=== PATIENT | male | born 1975 | race Caucasian/White ===

== ENCOUNTER 2019-02-07 00:19 | Emergency (ER) | payer OTHER ==
[2019-02-07] MEDS ORDERED: ASPIRIN 81 MG TABLET, CHEWABLE PO ONE (01:01)
--- NOTE | 2019-02-07 01:10 | ER Document Report ---
ED Cardiac - General Chief Complaint: Chest Pain Stated Complaint: CHEST PAIN/HEADACHE/LEFT ARM TINGLING Time Seen by Provider: 02/07/19 00:52 Notes: Patient is a 43-year-old male that comes emergency department for chief complaint of chest pain. He states it feels like a sharp pinching sensation, however tonight he felt it radiating to his left arm and shoulder and it did not go away like previously so he became concerned. He points to his mid to lower chest and the mid to upper chest as the area of the pain earlier. He has been feeling this intermittently for the past week or so. He states that it happened at work earlier, he drank a lot of water and walked around and it resolved. He states it also happens a lot at night. He denies nausea vomiting, fever/chills, difficulty breathing, or injury. He denies smoking, frequent alcohol, recent alcohol, or recreational drugs. His only daily medication is Nexium., Only past medical history is GERD, hernia repair, and orthopedic surgery - Related Data Allergies/Adverse Reactions: No Known Allergies Allergy (Unverified 02/07/19 01:07) Past Medical History - General Information source: Patient - Social History Smoking Status: Never Smoker Chew tobacco use (# tins/day): No Frequency of alcohol use: Occasional Drug Abuse: None Lives with: Family Family History: CAD Patient has suicidal ideation: No Patient has homicidal ideation: No GI Medical History: Reports: Hx Gastroesophageal Reflux Disease Surgical Hx: Negative - Immunizations Immunizations up to date: Yes Hx Diphtheria, Pertussis, Tetanus Vaccination: Yes Review of Systems - Review of Systems Constitutional: No symptoms reported EENT: No symptoms reported Cardiovascular: See HPI Respiratory: No symptoms reported Gastrointestinal: See HPI Genitourinary: No symptoms reported Male Genitourinary: No symptoms reported Musculoskeletal: No symptoms reported Skin: No symptoms reported Hematologic/Lymphatic: No symptoms reported Neurological/Psychological: No symptoms reported Physical Exam - Vital signs Vitals: Resp 12 02/07/19 00:39 - Notes Notes: GENERAL: Alert, interacts well. No acute distress. HEAD: Normocephalic, atraumatic. EYES: Pupils equal, round, and reactive to light. Extraocular movements intact. ENT: Oral mucosa moist, tongue midline. Oropharynx unremarkable. Airway patent. NECK: Full range of motion. Supple. Trachea midline. LUNGS: Clear to auscultation bilaterally, no wheezes, rales, or rhonchi. No respiratory distress. HEART: Regular rate and rhythm. No murmur ABDOMEN: Soft, non-tender. Non-distended. EXTREMITIES: Moves all 4 extremities spontaneously. No edema, normal radial and dorsalis pedis pulses bilaterally. No cyanosis. BACK: no cervical, thoracic, lumbar midline tenderness. No saddle anesthesia, normal distal neurovascular exam. Moves all extremities in full range of motion. NEUROLOGICAL: Alert and oriented x3. Normal speech. Cranial nerves II through XII grossly intact. PSYCH: Normal affect, normal mood. SKIN: Warm, dry, normal turgor. No rashes or lesions noted. Course - Re-evaluation Re-evalutation: Patient well-appearing. Symptoms have been coming and going for over a week. Symptoms are very atypical and are specifically worse when he is lying down, he only had this once when walking around. He does have a reflux history on Nexium. His abdomen is soft and benign, chest nontender, lungs clear, no current complaints. Very atypical symptoms. CBC unremarkable, chemistry unremarkable except for borderline hyperglycemia and borderline elevation of CK. Troponin negative. EKG nonischemic. I discussed with patient. Because he is over the age of 40, has family history of cardiac disease, we will cycle troponin, if this is negative he will follow closely with his provider and we will place him on Carafate for suspected GI source based on his reported symptoms. He states he will also follow-up with him closely and be referred to cardiology for symptoms continue. Troponin negative, heart score is less than 3, patient will be discharged with return precautions which we discussed at length. Patient states appreciation and agreement. Stable at time of discharge. - Vital Signs Vital signs: Temp Pulse Resp BP Pulse Ox 97.9 F 67 12 156/99 H 98 02/07/19 00:49 02/07/19 00:49 02/07/19 06:00 02/07/19 01:00 02/07/19 06:00 - Laboratory Result Diagrams: 02/07/19 00:54 02/07/19 00:54 Laboratory results interpreted by me: 02/07/19 00:54 Glucose 117 H Creatine Kinase 177 H - EKG Interpretation by Me Additional EKG results interpreted by me: EKG sinus rhythm with no T wave inversions or ST segment changes in consecutive leads. Normal axis. There is a single borderline Q wave in lead III but no consecutive leads with this. QTC unremarkable. Discharge - Discharge Clinical Impression: Chest pain of unknown etiology Condition: Stable Disposition: HOME, SELF-CARE Additional Instructions: Your work-up is reassuring at this time, the exact cause of your pain is not certain. Based on your history and symptoms I recommend that you take the Carafate for possible gastrointestinal source such as esophageal spasms, continue current medication, follow-up with primary care for additional management. Please discuss with your primary care potential cardiac referral for stress testing. Return if you worsen in any way including difficulty breathing, severe pain, vomiting, fever, or any other concerning symptoms. Prescriptions: Sucralfate [Carafate 1 gm Tablet] 1 gm PO QID #20 tablet
[2019-02-07 01:17] LABS: ABSOLUTE BASOPHILS # (AUTO) 0.1 10^3/uL (0.0-0.2); ABSOLUTE EOSINOPHILS # (AUTO) 0.3 10^3/uL (0.0-0.6); ABSOLUTE LYMPHOCYTES (AUTO) 2.5 10^3/uL (0.5-4.7); ABSOLUTE MONOCYTES (AUTO) 0.8 10^3/uL (0.1-1.4); ABSOLUTE NEUT (AUTO) 3.7 10^3/uL (1.7-8.2); BASOPHILS % (AUTO) 1.1 % (0-2); EOSINOPHILS % (AUTO) 3.5 % (0-6); HEMATOCRIT 42.1 % (37.9-51.0); HEMOGLOBIN 14.6 g/dL (13.5-17.0); LYMPHOCYTES % (AUTO) 33.8 % (13-45); MEAN CORPUSCULAR HEMOGLOBIN 32.6 pg (27.0-33.4); MEAN CORPUSCULAR HGB CONC 34.7 g/dL (32.0-36.0); MEAN CORPUSCULAR VOLUME 94 fl (80-97); MONOCYTES % (AUTO) 11.5 % (3-13); PLATELET COUNT 243 10^3/uL (150-450); RED BLOOD COUNT 4.48 10^6/uL (4.35-5.55); RED CELL DISTRIBUTION WIDTH 12.6 % (11.5-14.0); SEGMENTED NEUTROPHILS % (AUTO) 50.1 % (42-78); TOTAL CELLS COUNTED % (AUTO) 100 %; WHITE BLOOD COUNT 7.4 10^3/uL (4.0-10.5)
[2019-02-07 01:33] VITALS: BP 156/99
[2019-02-07 01:40] LABS: ALBUMIN 4.4 g/dL (3.5-5.0); ALKALINE PHOSPHATASE 93 U/L (38-126); ANION GAP 10 (5-19); ASPARTATE AMINO TRANSFERASE 38 U/L (17-59); BILIRUBIN,DIRECT 0.1 mg/dL (0.0-0.4); BILIRUBIN,TOTAL 0.6 mg/dL (0.2-1.3); BLOOD UREA NITROGEN 12 mg/dL (7-20); CALCIUM 9.1 mg/dL (8.4-10.2); CARBON DIOXIDE 25 mmol/L (22-30); CHLORIDE 106 mmol/L (98-107); CREATINE KINASE 177 U/L (55-170); GLUCOSE 117 mg/dL (75-110); POTASSIUM 4.2 mmol/L (3.6-5.0); TOTAL PROTEIN 7.4 g/dL (6.3-8.2)
--- NOTE | 2019-02-07 01:57 | RADIOLOGY REPORT (SQ) ---
EXAM DESCRIPTION: [facility]: XR CHEST 1 VIEW CLINICAL HISTORY: 43 years Male, chest pain COMPARISON: None. FINDINGS: Lungs are clear, with no focal infiltrate, pneumothorax, or pleural effusion. Mediastinum is within normal limits for this positioning. Bony structures are unremarkable. IMPRESSION: 1. No acute pulmonary findings.
[2019-02-07 02:27] LABS: APPEARANCE,URINE CLEAR; BILIRUBIN,URINE NEGATIVE (NEGATIVE); COLOR,URINE STRAW; GLUCOSE, URINE NEGATIVE (NEGATIVE); KETONES,URINE NEGATIVE (NEGATIVE); LEUKOCYTE ESTERASE,URINE NEGATIVE (NEGATIVE); NITRITE,URINE NEGATIVE (NEGATIVE); PROTEIN,URINE NEGATIVE (NEGATIVE); URINE SPECIFIC GRAVITY 1.008; UROBILINOGEN,URINE NEGATIVE mg/dL (<2.0)
[2019-02-07] MEDS ORDERED: NORMAL SALINE 500 ML IV ONE (03:45)
--- NOTE | 2019-02-07 14:43 | EKG REPORT ---
SEVERITY:- NORMAL ECG - SINUS RHYTHM : Confirmed by: Mera Ozuna MD 07-Feb-2019 14:43:09
== END 2019-02-07 06:53 | disposition home or self-care (01) ==
LOC: ER 00:19
DX: R07.9 Chest pain, unspecified (principal); R51 Headache; R20.2 Paresthesia of skin; K21.9 Gastro-esophageal reflux disease without esophagitis
CPT/HCPCS: 93005; 36415; 82550; 85025; 80053; 81001; 84484; 71045; 93010; J7040; 96360; 99285

== ENCOUNTER 2019-04-18 13:31 | Emergency (ER) | payer OTHER ==
[2019-04-18] MEDS ORDERED: AMOXICILLIN TR/POT CLAVULANATE 500-125 MG TAB PO ONE ×2 (14:09→17:00)
[2019-04-18] MEDS ORDERED: AMOXICILLIN TRIHYD 250 MG CAPSULE PO ONE ×2 (14:09→17:00)
[2019-04-18] MEDS ORDERED: HYDROCODONE/ACETAMINOPHEN 5-325 MG TABLET PO ONE ×2 (14:09→17:00)
[2019-04-18] MEDS ORDERED: DIPH/PERTUSS(ACELL)/TETANUS VAC/PF 0.5 ML SYR (>=10YO) IM ONE ×2 (14:10→17:00)
--- NOTE | 2019-04-18 14:14 | ER Document Report ---
ED Medical Screen (RME) - General Chief Complaint: Cat Bite Stated Complaint: CAT BITE Time Seen by Provider: 04/18/19 14:02 Notes: Patient is a 44-year-old male who presents to the emergency department after cat bite. Cat bite happened last night. The cat is a feral cat that he feeds. Normally the cat is nice and responds well to humans, except for when you try to reach for his food. The cat bit him on his right second digit. He fine yesterday, but this morning he woke up and had some swelling to his right hand. He is not up-to-date on his tetanus vaccine. He was seen in urgent care and was given Rocephin and a prescription for Augmentin. He was told to come here to the emergency department for a tetanus vaccine and rabies work-up. Exam: Edema and erythema noted to right second digit. I have greeted and performed a rapid initial assessment of this patient. A comprehensive ED assessment and evaluation of the patient, analysis of test results and completion of medical decision making process will be conducted by an additional ED providers. - Related Data Allergies/Adverse Reactions: No Known Allergies Allergy (Unverified 02/07/19 01:07) Home Medications: Nexxium Past Medical History - Social History Frequency of alcohol use: None Drug Abuse: None - Past Medical History Cardiac Medical History: Reports: Hx Hypertension - PREHYPERTENSION Renal/ Medical History: Reports: Hx Kidney Stones GI Medical History: Reports: Hx Gastroesophageal Reflux Disease Past Surgical History: Reports: Hx Abdominal Surgery - HERNIA, Hx Orthopedic Surgery - L5-S1, FINGER - Immunizations Immunizations up to date: Yes Hx Diphtheria, Pertussis, Tetanus Vaccination: Yes Physical Exam - Vital signs Vitals: Temp Pulse Resp BP Pulse Ox 99.0 F 108 H 16 142/96 H 98 04/18/19 13:32 04/18/19 13:32 04/18/19 13:32 04/18/19 13:32 04/18/19 13:32 Course - Vital Signs Vital signs: Temp Pulse Resp BP Pulse Ox 99.0 F 108 H 16 142/96 H 98 04/18/19 13:32 04/18/19 13:32 04/18/19 13:32 04/18/19 13:32 04/18/19 13:32
--- NOTE | 2019-04-18 15:12 | RADIOLOGY REPORT (SQ) ---
EXAM DESCRIPTION: HAND RIGHT 3 VIEWS COMPLETED DATE/TIME: 04/18/2019 2:22 pm REASON FOR STUDY: cat bite COMPARISON: None. EXAM PARAMETERS: NUMBER OF VIEWS: Three views. TECHNIQUE: AP, lateral and oblique radiographic images acquired of the right hand. LIMITATIONS: None. FINDINGS: MINERALIZATION: Normal. BONES: No acute fracture or dislocation. No worrisome bone lesions. JOINTS: No effusions. SOFT TISSUES: Diffuse right index finger soft tissue swelling. No foreign body. OTHER: No other significant finding. IMPRESSION: Diffuse right index finger soft tissue swelling. No bone puncture wound from cat bite. No retained radiopaque foreign body TECHNICAL DOCUMENTATION: JOB ID: [id number] [employer]- All Rights Reserved Reading location - IP/workstation name: [email or web address]
--- NOTE | 2019-04-18 18:26 | ER Document Report ---
ED Animal Bite - General Chief Complaint: Cat Bite Stated Complaint: CAT BITE Time Seen by Provider: 04/18/19 14:02 Mode of Arrival: Ambulatory Information source: Patient - HPI Notes: Patient presents and states that he was bitten by a cat yesterday. This bite was to the right hand. He states that it is a stray cat but he has been feeding the same cat for 4 months. He states that the cat comes by his house every night at the same time. He states that he tried to take food away from the cat yesterday which is why he was bitten. He states that the cat is otherwise showe d no signs of being aggressive and that they pet and play with a cat each evening. Patient states he will be able to easily locate the cat when he goes home. He states he has not yet contacted animal [employer]. Patient denies any other injuries. Patient states he went to work today but his right hand became swollen and severely painful so he went to the urgent care. Urgent care referred him to the emergency department. He states that his right hand has severe pain. It is worse with movement and better with rest. It does radiate up the right hand. It is constant. It is a sharp sensation. - Related Data Allergies/Adverse Reactions: No Known Allergies Allergy (Unverified 02/07/19 01:07) Home Medications: Nexxium Past Medical History - General Information source: Patient - Social History Smoking Status: Never Smoker Frequency of alcohol use: None Drug Abuse: None Family History: CAD Patient has suicidal ideation: No Patient has homicidal ideation: No - Past Medical History Cardiac Medical History: Reports: Hx Hypertension - PREHYPERTENSION Renal/ Medical History: Reports: Hx Kidney Stones GI Medical History: Reports: Hx Gastroesophageal Reflux Disease Past Surgical History: Reports: Hx Abdominal Surgery - HERNIA, Hx Orthopedic Surgery - L5-S1, FINGER - Immunizations Immunizations up to date: Yes Hx Diphtheria, Pertussis, Tetanus Vaccination: Yes Review of Systems - Review of Systems Constitutional: denies: Chills, Fever Cardiovascular: denies: Chest pain, Palpitations Gastrointestinal: denies: Abdominal pain, Diarrhea, Vomiting -: Yes All other systems reviewed and negative Physical Exam - Vital signs Vitals: Temp Pulse Resp BP Pulse Ox 99.0 F 108 H 16 142/96 H 98 04/18/19 13:32 04/18/19 13:32 04/18/19 13:32 04/18/19 13:32 04/18/19 13:32 Interpretation: Normal, Tachycardic - General General appearance: Appears well, Alert - HEENT Head: Normocephalic, Atraumatic Eyes: Normal Pupils: PERRL - Respiratory Respiratory status: No respiratory distress Chest status: Nontender Breath sounds: Normal Chest palpation: Normal - Cardiovascular Rhythm: Regular Heart sounds: Normal auscultation Murmur: No - Abdominal Inspection: Normal Distension: No distension Bowel sounds: Normal Tenderness: Nontender Organomegaly: No organomegaly - Back Back: Normal, Nontender - Extremities General upper extremity: Other - Patient's right hand has 2 puncture wounds to the index finger. One puncture wound is on the dorsal surface and one is on the ventral surface. He has tenderness and swelling about the metatarsal phalangeal joint. This area is also warm and erythematous. Patient does have a swollen right index finger with limited range of motion. The exam is consistent with a flexor tenosynovitis. General lower extremity: Normal inspection, Nontender, Normal color, Normal ROM, Normal temperature, Normal weight bearing. No: Mya's sign - Neurological Neuro grossly intact: Yes Cognition: Normal Orientation: AAOx4 Thompson Coma Scale Eye Opening: Spontaneous Thompson Coma Scale Verbal: Oriented Thompson Coma Scale Motor: Obeys Commands [place] Coma Scale Total: 15 Speech: Normal Motor strength normal: LUE, RUE, LLE, RLE Sensory: Normal - Psychological Associated symptoms: Normal affect, Normal mood - Skin Skin Temperature: Warm Skin Moisture: Dry Skin Color: Normal, Other - Skin exam is normal except as noted above in extremities Course - Re-evaluation Re-evalutation: 04/18/19 18:30 Patient has a cat bite with obvious infection. He was seen in the emergency department by the orthopedic surgeon, Dr. Villarreal. Dr. Gallardo that he will take care of the patient on Friday in the office. He asked that I discharge patient home with a splint, some antibiotics, some pain medicine, and animal control has been notified of the bite. I have discussed the risk of rabies with the patient and told him that if the cat is unable to be found in quarantine he will require rabies vaccinations. - Vital Signs Vital signs: Temp Pulse Resp BP Pulse Ox 99.1 F 108 H 16 142/96 H 98 04/18/19 17:11 04/18/19 13:32 04/18/19 13:32 04/18/19 13:32 04/18/19 13:32 - Diagnostic Test Radiology reviewed: Image reviewed, Reports reviewed Discharge - Discharge Clinical Impression: Flexor tenosynovitis of finger, Suppurative tenosynovitis of flexor tendon of right hand Cat bite of finger Qualifiers: Encounter type: initial encounter Qualified Code(s): S61.259A - Open bite of unspecified finger without damage to nail, initial encounter; W55.01XA - Bitten by cat, initial encounter Condition: Stable Disposition: HOME, SELF-CARE Instructions: Animal Bites ([facility]) Additional Instructions: Please follow-up with Dr. Villarreal on Friday as scheduled Prescriptions: Amox Tr/Potassium Clavulanate [Augmentin 875-125 mg Tablet] 1 tab PO BID #20 tablet Hydrocodone/Acetaminophen [[place] 5-325 mg Tablet] 1 tab PO Q6 PRN 3 Days #12 tablet PRN Reason: Forms: Return to Work Referrals: EUGENIE VILLARREAL DO [ACTIVE STAFF] - 04/20/19 9:00 am
[2019-04-18 19:00] VITALS: BP 138/90
--- NOTE | 2019-04-18 19:33 | RADIOLOGY REPORT (SQ) ---
EXAM DESCRIPTION: HAND LEFT 3 VIEWS COMPLETED DATE/TIME: 04/18/2019 7:09 pm REASON FOR STUDY: CAT BITE COMPARISON: None. EXAM PARAMETERS: NUMBER OF VIEWS: Three views. TECHNIQUE: AP, lateral and oblique radiographic images acquired of the left hand. LIMITATIONS: None. FINDINGS: MINERALIZATION: Normal. BONES: No acute fracture or dislocation. No worrisome bone lesions. JOINTS: No effusions. SOFT TISSUES: No soft tissue swelling. No foreign body. OTHER: No other significant finding. IMPRESSION: No fracture or dislocation of the left hand. No radiopaque foreign body. TECHNICAL DOCUMENTATION: JOB ID: [id number]- All Rights Reserved Reading location - IP/workstation name: [email or web address]
== END 2019-04-18 18:58 | disposition home or self-care (01) ==
LOC: ER 13:31
DX: S61.259A Open bite of unspecified finger without damage to nail, initial encounter (principal); M65.841 Other synovitis and tenosynovitis, right hand; W55.01XA Bitten by cat, initial encounter; Y92.007 Garden or yard of unspecified non-institutional (private) residence as the place of occurrence of the external cause; Z87.442 Personal history of urinary calculi; Z23 Encounter for immunization
CPT/HCPCS: 99283; 90471; 73130; 90715; L3908; J3490

== ENCOUNTER 2020-05-09 20:56 | Emergency (ER) | payer OTHER ==
--- NOTE | 2020-05-09 21:40 | ER Document Report ---
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 Chest pain is 2 out of 5. patient states that while he was at work doing strenuous activities today, his chest pain became sharp and painful. He did go to his primary care today in the afternoon to get checked out for chest pain, they did advise him to go to the emergency room. Patient is a non-smoker. Mother had a fatal WI at 42, father had his first heart attack at 73. She had similar chest pain in 2019. I have greeted and performed a rapid initial assessment of this patient. A comprehensive ED assessment and evaluation of the patient, analysis of test results and completion of the medical decision making process will be conducted by additional ED providers. PHYSICAL EXAMINATION: GENERAL: Well-appearing, well-nourished and in no acute distress. CV: s1, s2 regular LUNGS: No respiratory distress The patient was evaluated during a global COVID-19 pandemic and that diagnosis was suspected/considered upon their initial presentation. Their evaluation, treatment and testing was consistent with current guidelines for patients who present with complaints or symptoms and may be related to COVID-19. - Related Data Allergies/Adverse Reactions: No Known Allergies Allergy (Unverified 02/07/19 01:07) Past Medical History - Past Medical History Cardiac Medical History: Reports: Hx Hypertension - PREHYPERTENSION Renal/ Medical History: Reports: Hx Kidney Stones GI Medical History: Reports: Hx Gastroesophageal Reflux Disease Past Surgical History: Reports: Hx Abdominal Surgery - HERNIA, Hx Orthopedic Surgery - L5-S1, FINGER - Immunizations Immunizations up to date: Yes Hx Diphtheria, Pertussis, Tetanus Vaccination: Yes Physical Exam - Vital signs Vitals: Temp Pulse Resp BP Pulse Ox 98.6 F 95 17 138/86 H 93 05/09/20 21:14 05/09/20 21:14 05/09/20 21:14 05/09/20 21:14 05/09/20 21:14 Course - Vital Signs Vital signs: Temp Pulse Resp BP Pulse Ox 98.6 F 95 17 138/86 H 93 05/09/20 21:14 05/09/20 21:14 05/09/20 21:14 05/09/20 21:14 05/09/20 21:14
--- NOTE | 2020-05-09 22:05 | RADIOLOGY REPORT (SQ) ---
EXAM: CHEST SINGLE VIEW CLINICAL INDICATION: 45-year-old male with chest pain. TECHNIQUE: Single view, AP portable chest was obtained. COMPARISON: 02/07/2019. FINDINGS: Unremarkable cardiac and mediastinal silhouette. Heart size is normal. Lungs are clear without focal opacity, pneumothorax or pleural effusions. The visualized bones are within normal limits. IMPRESSION: No acute cardiopulmonary abnormalities.
[2020-05-09 22:15] LABS: ABSOLUTE BASOPHILS # (AUTO) 0.1 10^3/uL (0.0-0.2); ABSOLUTE EOSINOPHILS # (AUTO) 0.2 10^3/uL (0.0-0.6); ABSOLUTE LYMPHOCYTES (AUTO) 3.1 10^3/uL (0.5-4.7); ABSOLUTE MONOCYTES (AUTO) 1.2 10^3/uL (0.1-1.4); ABSOLUTE NEUT (AUTO) 7.3 10^3/uL (1.7-8.2); BASOPHILS % (AUTO) 0.9 % (0-2); EOSINOPHILS % (AUTO) 1.4 % (0-6); HEMATOCRIT 42.6 % (37.9-51.0); MEAN CORPUSCULAR HGB CONC 35.1 g/dL (32.0-36.0); MEAN CORPUSCULAR VOLUME 97 fl (80-97); MONOCYTES % (AUTO) 10.3 % (3-13); PLATELET COUNT 261 10^3/uL (150-450); RED CELL DISTRIBUTION WIDTH 12.3 % (11.5-14.0); SEGMENTED NEUTROPHILS % (AUTO) 61.4 % (42-78); TOTAL CELLS COUNTED % (AUTO) 100 %; WHITE BLOOD COUNT 11.8 10^3/uL (4.0-10.5)
[2020-05-09 22:35] LABS: ALBUMIN 4.9 g/dL (3.5-5.0); ALKALINE PHOSPHATASE 98 U/L (38-126); ANION GAP 12 (5-19); ASPARTATE AMINO TRANSFERASE 51 U/L (17-59); BILIRUBIN,DIRECT 0.2 mg/dL (0.0-0.4); BILIRUBIN,TOTAL 0.8 mg/dL (0.2-1.3); BLOOD UREA NITROGEN 23 mg/dL (7-20); CALCIUM 10.1 mg/dL (8.4-10.2); CARBON DIOXIDE 24 mmol/L (22-30); CHLORIDE 102 mmol/L (98-107); CREATINE KINASE 199 U/L (55-170); GLUCOSE 96 mg/dL (75-110); POTASSIUM 4.6 mmol/L (3.6-5.0); TOTAL PROTEIN 7.9 g/dL (6.3-8.2)
[2020-05-09 22:43] LABS: CREATINE KINASE MB 1.55 ng/mL (<4.55)
[2020-05-09 22:49] LABS: TROPONIN I < 0.012 ng/mL
--- NOTE | 2020-05-10 01:51 | ER Document Report ---
ED Cardiac - General Chief Complaint: Chest Pain Stated Complaint: CHEST PAIN/LEFT ARM TINGLY Time Seen by Provider: 05/09/20 21:31 Primary Care Provider: IRINA BYNUM PA-C [Primary Care Provider] - Follow up as needed Mode of Arrival: Ambulatory Information source: Patient Notes: 05/09/20 21:47 - ED Nursing Note by CIELO WEST Num: [id number] : 1975 Patient Age: 45 pt started w/chest pain intermittently yesterday. today at work pain worse w/exertion also sob and lightheadedness. tonight at 1830 pain also on left arm. hx of HTN, GERD, HSV2 ED Medical Screen ([facility] Notes) - General Chief Complaint: Chest Pain Stated Complaint: CHEST PAIN/LEFT ARM TINGLY Time Seen by Provider: 05/09/20 21:31 - HPI Notes: 05/09/20 21:37 45-year-old male with a history of hypertension, GERD, HSV-2 presents to the emergency room with left-sided chest pain that started yesterday mid afternoon, was intermittent and today has become constant chest pain, he started with left arm numbness and tingling roughly an hour and a half ago. Chest pain is 2 out of 5. patient states that while he was at work doing strenuous activities today, his chest pain became sharp and painful. He did go to his primary care today in the afternoon to get checked out for chest pain, they did advise him to go to the emergency room. Patient is a non-smoker. Mother had a fatal KS at 42, father had his first heart attack at 73. She had similar chest pain in 2019. I have greeted and performed a rapid initial assessment of this patient. A comprehensive ED assessment and evaluation of the patient, analysis of test results and completion of the medical decision making process will be conducted by additional ED providers. PHYSICAL EXAMINATION: GENERAL: Well-appearing, well-nourished and in no acute distress. CV: s1, s2 regular LUNGS: No respiratory distress 05/09/20 23:00 - ED Nursing Note by CARLOS DIXON Num: [id number] : 1975 Patient Age: 45 MR COMER, IS A 45 YOU MALE, WITH NO PAST CARDIAC HX, PRESENTS C/O CHEST PAIN THAT STARTED YESTERDAY AFTER PREFORMING SONE STRENUOUS ACTIVITY AT WORK. PT REPORTED THAT HE STARED HAVING SAME SHARP PAIN TO DAY, AND DUE TO HIS FAMILY HX OF KS, HE PRESENTS. 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 BED IN LOW LOC, CALL BASSETT WITHIN REACH. MY NOTES 45-year-old male arrives with chief complaint of having chest pain intermittently beginning yesterday. Today at work pain was worse with exertion associated with shortness of breath. By tonight at 1830 pain was radiating to the left arm. Patient reports he was at work for 8-1/2 hours a day and worked in 1/2 hours yesterday. 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 Patient is not a smoker but does drink occasional bloody Yadira's and bourbon. He does this with the [id number] on a weekend basis. 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 Patient reports she used to be in the [employer] around 89 in [place]. His denies any emotional changes in her . They have no sick pets or anyone having problems in the family. - Related Data Allergies/Adverse Reactions: No Known Allergies Allergy (Unverified 02/07/19 01:07) Past Medical History - Social History Smoking Status: Never Smoker Family History: CAD - Past Medical History Cardiac Medical History: Reports: Hx Hypertension - PREHYPERTENSION Renal/ Medical History: Reports: Hx Kidney Stones GI Medical History: Reports: Hx Gastroesophageal Reflux Disease Past Surgical History: Reports: Hx Abdominal Surgery - HERNIA, Hx Orthopedic Surgery - L5-S1, FINGER - Immunizations Immunizations up to date: Yes Hx Diphtheria, Pertussis, Tetanus Vaccination: Yes Review of Systems - Review of Systems Constitutional: No symptoms reported EENT: No symptoms reported Cardiovascular: See HPI, Chest pain, Other - Referral to the left arm this evening and this prompted him to come to the ER. Respiratory: No symptoms reported Gastrointestinal: No symptoms reported Genitourinary: No symptoms reported Male Genitourinary: No symptoms reported Musculoskeletal: No symptoms reported Skin: No symptoms reported Hematologic/Lymphatic: No symptoms reported Neurological/Psychological: No symptoms reported Physical Exam - Vital signs Vitals: Temp Pulse Resp BP Pulse Ox 98.6 F 95 17 138/86 H 93 05/09/20 21:14 05/09/20 21:14 05/09/20 21:14 05/09/20 21:14 05/09/20 21:14 Interpretation: Normal - General General appearance: Appears well, Alert - HEENT Head: Normocephalic, Atraumatic Eyes: Normal Pupils: PERRL - Respiratory Respiratory status: No respiratory distress Chest status: Nontender Breath sounds: Normal Chest palpation: Normal - Cardiovascular Rhythm: Regular Heart sounds: Normal auscultation Murmur: No - Abdominal Inspection: Normal Distension: No distension Bowel sounds: Normal Tenderness: Nontender Organomegaly: No organomegaly - Rectal Prostate: Other - Deferred - Genitourinary Scrotum: Other - Deferred - Back Back: Normal, Nontender - Extremities General upper extremity: Normal inspection, Nontender, Normal color, Normal ROM, Normal temperature General lower extremity: Normal inspection, Nontender, Normal color, Normal ROM, Normal temperature, Normal weight bearing. No: Mya's sign - Neurological Neuro grossly intact: Yes Cognition: Normal Orientation: AAOx4 Thompson Coma Scale Eye Opening: Spontaneous [place] Coma Scale Verbal: Oriented Thompson Coma Scale Motor: Obeys Commands Thompson Coma Scale Total: 15 Speech: Normal Motor strength normal: LUE, RUE, LLE, RLE Sensory: Normal - Psychological Associated symptoms: Normal affect, Normal mood - Skin Skin Temperature: Warm Skin Moisture: Dry Skin Color: Normal Course - Vital Signs Vital signs: Temp Pulse Resp BP Pulse Ox 98.6 F 95 16 143/91 H 98 05/09/20 21:14 05/09/20 21:14 05/10/20 02:27 05/10/20 02:27 05/10/20 02:27 - Laboratory Results Result Diagrams: 05/09/20 21:59 05/09/20 21:59 Laboratory Results Interpreted: 05/09/20 05/09/20 21:59 21:59 WBC 11.8 H MCH 34.0 H BUN 23 H ALT 86 H Creatine Kinase 199 H Critical Laboratory Results Reviewed: Yes Attending or Supervising Physician who Reviewed Labs: BAREFOOT,FELIZ A JR - Radiology Results Critical Radiology Results Reviewed: No Critical Results Attending or Supervising Physician who Reviewed Radiology: FELIZ REYES JR - EKG Interpretation by Me EKG shows normal: Sinus rhythm Critical Care Note - Critical Care Note Comments: I discussed findings with patient and his and he appeared to understand the negative findings of troponins D-dimer and elevated CPK Discharge - Discharge Clinical Impression: Angina at rest, Elevated CPK, Stressful job Condition: Stable Disposition: HOME, SELF-CARE Additional Instructions: Follow-up with Dr. 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 Whoever saw you last year this time. Please follow-up with them. Return to ER as needed off work as directed avoid heavy lifting bending or twisting. The elevated CPK indicate some muscle strain. You have negative troponins which indicate no heart attack. Did not have any elevated thyroid function or blood counts. Prescriptions: Alprazolam [Xanax 0.5 mg Tablet] 0.5 mg PO QHS PRN #7 tab PRN Reason: Anxiety Forms: Return to Work Referrals: IRINA BYNUM PA-C [Primary Care Provider] - Follow up as needed
[2020-05-10 03:01] LABS: APPEARANCE,URINE CLEAR; BILIRUBIN,URINE NEGATIVE (NEGATIVE); COLOR,URINE YELLOW; GLUCOSE, URINE NEGATIVE (NEGATIVE); KETONES,URINE NEGATIVE (NEGATIVE); LEUKOCYTE ESTERASE,URINE NEGATIVE (NEGATIVE); NITRITE,URINE NEGATIVE (NEGATIVE); PROTEIN,URINE NEGATIVE (NEGATIVE); UROBILINOGEN,URINE NEGATIVE mg/dL (<2.0)
[2020-05-10 03:15] LABS: URINE AMPHETAMINES SCREEN NEGATIVE; URINE BARBITURATES SCREEN NEGATIVE; URINE BENZODIAZEPINES SCREEN NEGATIVE; URINE COCAINE SCREEN NEGATIVE; URINE MARIJUANA (THC) SCREEN NEGATIVE; URINE METHADONE SCREEN NEGATIVE; URINE PHENCYCLIDINE SCREEN NEGATIVE
[2020-05-10 03:35] VITALS: BP 120/72
--- NOTE | 2020-05-10 09:26 | EKG REPORT ---
SEVERITY:- BORDERLINE ECG - SINUS RHYTHM BORDERLINE T ABNORMALITIES, INFERIOR LEADS : Confirmed by: Kenny Quintana MD 10-May-2020 09:25:29
== END 2020-05-10 03:33 | disposition home or self-care (01) ==
LOC: ER 20:56
DX: I20.9 Angina pectoris, unspecified (principal); I10 Essential (primary) hypertension; R79.89 Other specified abnormal findings of blood chemistry; R20.0 Anesthesia of skin; R42 Dizziness and giddiness; R06.02 Shortness of breath; M79.602 Pain in left arm; Z56.3 Stressful work schedule; Z82.49 Family history of ischemic heart disease and other diseases of the circulatory system
CPT/HCPCS: 36415; 71045; 80053; 80307; 81001; 82550; 82553; 84443; 84484; 85025; 85379; 93005; 93010; 99285